=== PATIENT | male | born 1975 | race Caucasian/White ===

== ENCOUNTER 2022-02-08 09:44 | Day surgery (SDCO) | payer OTHER ==
[~2022-02-08 09:44] MED LIST: NORCO 5-325 TA1 EACH PO; OMEPRAZOLE 20MG20 MG PO; OMEPRAZOLE20 M1 PO; PERCOCET 7.5/321 TAB PO; PRINIVIL20 MG PO
[2022-02-08 10:10] LABS: BASOPHIL 0.9 % (0-2); EOSINOPHIL 1.5 % (0-5); HCT 44.9 % (42.0-52.0); HGB 14.4 g/dl (13.2-18.0); LYMPHOCYTE 25.5 % (15-48); MCH 28.8 pg (25.0-31.0); MCHC 32.1 g/dL (32.0-36.0); MCV 89.8 fL (78.0-100.0); MPV 10.8 fL (6.0-9.5); NEUTROPHIL 63.6 % (41-80); NRBC 0; PLT 363 K/uL (150-400); RDW 14.2 % (11.5-14.0); WBC 15.1 K/uL (4.0-10.5)
[2022-02-08 10:23] LABS: INR 1.04 (0.9-1.2); PTT 26.7 SECONDS (24.4-34.7)
[2022-02-08 10:24] LABS: D-DIMER < 0.27 ug/mLFEU (0.00-0.41)
[2022-02-08 10:29] LABS: ALBUMIN 4.2 g/dL (3.4-5.0); BUN/CREAT RATIO (CALC) 15.1 RATIO; CREATININE 0.93 mg/dL (0.67-1.17); POTASSIUM 3.3 mmol/L (3.5-5.1); TOTAL PROTEIN 8.2 g/dL (6.4-8.2)
[2022-02-08 10:52] LABS: FT4 (FREE T4) 0.9 ng/dL (0.76-1.46)
[2022-02-08 11:35] LABS: BILIRUBIN NEGATIVE (NEGATIVE); BLOOD NEGATIVE Ery/uL (NEGATIVE); CLARITY CLEAR (CLEAR); COLOR YELLOW (YELLOW); GLUCOSE (U) NORMAL (NORMAL); LEUKOCYTES NEGATIVE Leu/uL (NEGATIVE); NITRITE NEGATIVE (NEGATIVE); PROTEIN NEGATIVE (NEGATIVE); UROBILINOGEN 0.2 mg/dL (0.2-1.0)
[2022-02-08 11:46] LABS: AMPHETAMINES NEGATIVE (NEGATIVE); BARBITURATES NEGATIVE (NEGATIVE); ECSTASY (MDMA) NEGATIVE (NEGATIVE); MARIJUANA (THC) NEGATIVE (NEGATIVE); METHADONE NEGATIVE (NEGATIVE); OPIATES NEGATIVE (NEGATIVE)
[2022-02-08 11:47] LABS: OXYCODONE NEGATIVE (NEGATIVE)
[2022-02-08 16:44] LABS: BASOPHIL 0.6 % (0-2); EOSINOPHIL 0.4 % (0-5); HCT 45.4 % (42.0-52.0); HGB 14.9 g/dl (13.2-18.0); LYMPHOCYTE 15.2 % (15-48); MCH 28.9 pg (25.0-31.0); MCHC 32.8 g/dL (32.0-36.0); MCV 88.2 fL (78.0-100.0); MONOCYTE 6.8 % (0-12); MPV 10.7 fL (6.0-9.5); NEUTROPHIL 76.7 % (41-80); NRBC 0; PLT 345 K/uL (150-400); RBC 5.15 M/uL (4.70-6.00); RDW 14.1 % (11.5-14.0); WBC 14.1 K/uL (4.0-10.5)
[2022-02-08 17:06] LABS: BUN/CREAT RATIO (CALC) 13.6 RATIO; CREATININE 0.81 mg/dL (0.67-1.17); POTASSIUM 3.5 mmol/L (3.5-5.1)
[2022-02-08] MEDS ORDERED: LISINOPRIL-HCT1 EAC1 PO (17:06)
[2022-02-09 06:16] LABS: BASOPHIL 0.7 % (0-2); EOSINOPHIL 3.1 % (0-5); HCT 44.3 % (42.0-52.0); HGB 14.3 g/dl (13.2-18.0); LYMPHOCYTE 28.1 % (15-48); MCH 28.9 pg (25.0-31.0); MCHC 32.3 g/dL (32.0-36.0); MCV 89.5 fL (78.0-100.0); MPV 10.8 fL (6.0-9.5); NEUTROPHIL 58.7 % (41-80); NRBC 0; PLT 345 K/uL (150-400); RBC 4.95 M/uL (4.70-6.00); RDW 14.2 % (11.5-14.0); WBC 13.1 K/uL (4.0-10.5)
--- NOTE | 2022-02-09 06:18 | NUR ---
CARDENE DRIP TITRATION 2200- 146/74 (96) 10MG/HR OR 100ML/HR 2210- TITRATED DOWN TO 7.5MG/HR OR 75ML/HR 2230- 140/77 (96) 2315- 138/82 (102), TITRATED DOWN TO 5MG/HR OR 50ML/HR 2345- 133/80 (97) 0110- 128/91 (101), TITRATED DOWN TO 2.5MG/HR OR 25 ML/HR 0145- 128/74 (91) 0505- 123/75 (91), TURNED OFF CARDENE DRIP 0600- 150/97 (115) PER FLOR MALIK, WILL KEEP PT OFF CARDENE TO EVALUATE HOW MORNING MEDICATIONS AFFECTS BP.
[2022-02-09 06:54] LABS: ALBUMIN 3.8 g/dL (3.4-5.0); BILIRUBIN - TOTAL 1.1 mg/dL (0.2-1.0); BUN/CREAT RATIO (CALC) 18.8 RATIO; CREATININE 0.85 mg/dL (0.67-1.17); GLOBULIN (CALCULATION) 3.8 g/dL; MAGNESIUM 2.1 mg/dL (1.8-2.4); POTASSIUM 3.7 mmol/L (3.5-5.1); TOTAL PROTEIN 7.6 g/dL (6.4-8.2)
--- NOTE | 2022-02-09 07:53 | NUR ---
MEDICATION CHANGES MADE BY CARDIOLOGY, LISINOPRIL CHANGED TO VALSARTAN 320MG PO QDAY PT GIVEN COZAR REPLACEMENT HCTZ CHANGED TO DYAZIDE 37.5/25 MYAZIDE GIVEN REPLACEMENT. SPOKE TO ODESSA IN PHARMACY FOR REPLACEMENT NAMES AND DOSES. [place]
[2022-02-09] MEDS ORDERED: TRIAMTERENE-HC1 EAC1 PO (10:11)
[2022-02-09] MEDS ORDERED: LOPRESSOR50 MG PO (10:11)
[2022-02-09] MEDS ORDERED: VALSARTAN320 MG PO (10:11)
== END 2022-02-09 10:35 | disposition home or self-care (01) ==
LOC: FER 09:44 → FICU 14:31
PROVIDERS: Emergency Medicine; ADMIT Internal Medicine
DX: I16.9 Hypertensive crisis, unspecified (principal); R07.89 Other chest pain; K21.9 Gastro-esophageal reflux disease without esophagitis; D72.829 Elevated white blood cell count, unspecified; R00.0 Tachycardia, unspecified; I10 Essential (primary) hypertension; R06.02 Shortness of breath; Z20.822 Contact with and (suspected) exposure to COVID-19
CPT/HCPCS: 36415; 71045; 80048; 80053; 80305; 81001; 83735; 83880; 84145; 84439; 84443; 84484; 85025; 85379; 85610; 85730; 93005; G0378; U0002